=== PATIENT | female | born 1965 | race Caucasian/White ===

== ENCOUNTER 2025-01-03 19:18 | Emergency (ER) | payer OTHER ==
[2025-01-03 19:44] LABS: #Basophils 0.2 thou/uL (0.0-0.2); #Eosinophils 0.1 thou/uL (0.0-0.7); #Lymphocytes 2.4 thou/uL (1.20-3.40); #Monocytes 0.7 thou/uL (0.11-0.59); #Neutrophils 8.6 thou/uL (1.40-6.50); %Basophils 1.9 % (0.0-1.0); %Eosinophils 1.0 % (0.0-10.0); %Lymphocytes 20.2 % (21.0-51.0); %Monocytes 5.4 % (0.0-10.0); %Neutrophils 71.6 % (42.0-75.0); Hematocrit 46.3 % (36.0-47.0); Hemoglobin 16.0 g/dL (12.0-16.0); Mean Corpuscular Hemoglobin 27.5 pg (27.0-31.0); Mean Corpuscular Volume 79.5 fl (78.0-98.0); Platelet Count 316 10x3/uL (130-400); Red Blood Cell (RBC) Count 5.83 mill/uL (4.20-5.40); White Blood Cell (WBC) Count 12.1 10x3/uL (4.8-10.8)
[2025-01-03 19:54] LABS: Chloride 105 mmol/L (98-107); Potassium 3.6 mmol/L (3.5-5.1)
[2025-01-03 20:03] LABS: Troponin I 0.012 ng/mL (< 0.028)
[2025-01-03] MEDS ORDERED: Albuterol 2.5 MG (0.5 mL) NEB ONE (20:08)
[2025-01-03] MEDS ORDERED: Magnesium 2 GM/50 ML BAG (IN WATER) ONE (20:08)
[2025-01-03] MEDS ORDERED: Acetaminophen 325 MG TAB ONE (20:29)
[2025-01-03 20:31] LABS: ALT (SGPT) Less than 7 U/L (Less than 34); AST (SGOT) 15 U/L (11-34); Albumin 3.9 g/dL (3.1-4.5); Alkaline Phosphatase 100 U/L (40-110); Anion Gap 16 mmol/L (10-20); BUN (Urea Nitrogen) 12 mg/dL (9.8-20.1); Bilirubin, Total 0.3 mg/dL (0.3-1.2); Calc. Creatinine Clearance 0 mL/min (70-130); Calcium 9.2 mg/dL (7.8-10.44); Carbon Dioxide 25 mmol/L (23-31); Globulin 3.0 g/dL (2.4-3.5); Glucose 222 mg/dL (80-115); Sodium 142 mmol/L (136-145)
== END 2025-01-03 23:57 | disposition short-term general hospital (02) ==
LOC: BURERS 19:18
DX: J44.1 Chronic obstructive pulmonary disease with (acute) exacerbation (principal); E78.5 Hyperlipidemia, unspecified; F17.210 Nicotine dependence, cigarettes, uncomplicated; Z79.899 Other long term (current) drug therapy
CPT/HCPCS: 71045; 80053; 83880; 84484; 85025; 93005; 96365; 96375; J2919; J3475; J7611